=== PATIENT | male | born 1955 | race African-American/Black ===

== ENCOUNTER 2018-11-06 10:42 | Outpatient (CLI) | payer MEDICARE, OTHER ==
--- NOTE | 2018-11-06 11:22 | RAD ---
TWO VIEWS CHEST: Comparison: 04-03-17 History: Cough for one month. FINDINGS: Two views of the chest shows a normal sized cardiomediastinal silhouette. There is hyperexpansion of the lungs consistent with COPD. There is no evidence of consolidation, mass, or pleural effusion. IMPRESSION: No evidence of acute cardiopulmonary disease. POS: [facility]
== END 2018-11-06 10:43 | disposition home or self-care (01) ==
LOC: BICRAD 10:42
PROVIDERS: ATTEND Internal Medicine Infectious Disease
DX: R05 Cough (principal)
CPT/HCPCS: 71046